=== PATIENT | female | born 2000 | race Two or more races ===

== ENCOUNTER 2022-12-18 16:40 | Emergency (ER) | payer OTHER, MEDICAID ==
[~2022-12-18] VITALS: Ht 157.5 cm; Wt 55.0 kg
[2022-12-18] MEDS ORDERED: IBUPROFEN 800 MG TAB PO ONE (18:45)
[2022-12-19] MEDS ORDERED: HYDROmorphone HCL 2 MG/ML VL/or syr IV ONE
[2022-12-19] MEDS ORDERED: ONDANSETRON HCL 4 MG/2 ML VIAL IV ONE
[2022-12-19] MEDS ORDERED: PERCOT PO (04:18)
[2022-12-19] MEDS ORDERED: SODIUM CHLORIDE 0.9% 1,000 ML IV ONE ×2 (05:15)
[2022-12-19 06:00] VITALS: BP 87/49
== END 2022-12-19 14:02 | disposition home or self-care (01) ==
LOC: ER 16:40 → EDBD 16:40 → ER 12-19 13:06
DX: S42.294A Other nondisplaced fracture of upper end of right humerus, initial encounter for closed fracture (principal); I10 Essential (primary) hypertension; Z88.5 Allergy status to narcotic agent; Z88.6 Allergy status to analgesic agent; V89.2XXA Person injured in unspecified motor-vehicle accident, traffic, initial encounter; Y93.89 Activity, other specified; Y92.89 Other specified places as the place of occurrence of the external cause; Y99.8 Other external cause status
CPT/HCPCS: 70450; 71250; 72125; 73000; 73100; 74176; 96361; 96374; 96375; 99285; J1170; J2405; J7030